=== PATIENT | male | born 1995 | race Caucasian/White ===

== ENCOUNTER 2020-06-08 11:44 | Inpatient (IN) | payer MEDICAID ==
[~2020-06-08] VITALS: Ht 167.6 cm; Wt 70.3 kg
[2020-06-08] MEDS ORDERED: PNEUMOCOCCAL VACCINE POLYVALENT 0.5 ML VIAL [PPSV23] IM ONE (16:00)
[2020-06-08] MEDS ORDERED: INFLUENZA VIRUS VACCINE QVS 2020-21 (6MO+)/PF 60 MCG/0.5 ML SYRINGE IM ONE (16:00)
[2020-06-08 16:30] VITALS: BP 103/58
[2020-06-08] MEDS: LORazepam 2 MG TABLET PO PRN (16:40)
[2020-06-08] MEDS: ZOLPIDEM TARTRATE 10 MG TABLET PO PRN (21:12)
[2020-06-09 00:08] VITALS: BP 137/79
[2020-06-09] MEDS: LORazepam 2 MG TABLET PO PRN ×4 (00:13→17:13)
[2020-06-09] MEDS: HALOPERIDOL 5 MG TABLET PO PRN ×2 (04:14→09:08)
[2020-06-09] MEDS ORDERED: DOCUSATE SODIUM 100 MG CAPSULE PO PRN (08:00)
[2020-06-09] MEDS ORDERED: LOPERAMIDE HCL 2 MG CAPSULE PO PRN (08:00)
[2020-06-09] MEDS ORDERED: CloNIDine HCL 0.1 MG TABLET PO PRN (08:00)
[2020-06-09] MEDS ORDERED: NICOTINE 14 MG/24 HOUR PATCH TD PRN (08:00)
[2020-06-09] MEDS ORDERED: GuaiFENesin/D-METHORPHAN [SUGAR-FREE] 200-20MG/10 ML SYRUP UDCUP PO PRN (08:00)
[2020-06-09] MEDS ORDERED: ALBUTEROL SULFATE HFA 90 MCG/PUFF 8 GM INHALER IH PRN (08:00)
[2020-06-09] MEDS ORDERED: ONDANSETRON HCL 4 MG TABLET PO PRN (08:00)
[2020-06-09] MEDS ORDERED: IBUPROFEN 400 MG TABLET PO PRN (08:00)
[2020-06-09] MEDS ORDERED: MAGNESIUM HYDROXIDE SUSPENSION 30 ML UDCUP PO PRN (08:00)
[2020-06-09] MEDS ORDERED: MAG HYDROX/AL HYDROX/SIMETH ES 30 ML SUSPENSION UDCUP PO PRN (08:00)
[2020-06-09] MEDS ORDERED: PETROLATUM,WHITE 28 GM JELLY TP PRN (08:00)
[2020-06-09] MEDS ORDERED: ACETAMINOPHEN 325 MG TABLET PO PRN (08:00)
[2020-06-09 08:08] VITALS: BP 137/88
[2020-06-09] MEDS: NICOTINE 7 MG/24 HOUR PATCH TD SCH (09:07)
[2020-06-09 16:00] VITALS: BP 120/64
[2020-06-09] MEDS: OLANZapine 5 MG TABLET PO SCH (17:13)
[2020-06-09] MEDS: ZOLPIDEM TARTRATE 10 MG TABLET PO PRN (22:20)
[2020-06-10 05:12] VITALS: BP 124/67
[2020-06-10 08:08] VITALS: BP 119/75
[2020-06-10] MEDS: OLANZapine 5 MG TABLET PO SCH ×2 (08:09→16:56)
[2020-06-10] MEDS: LORazepam 2 MG TABLET PO PRN ×3 (08:09→20:51)
[2020-06-10] MEDS: NICOTINE 7 MG/24 HOUR PATCH TD SCH (08:09)
[2020-06-10] MEDS: HALOPERIDOL 5 MG TABLET PO PRN (08:09)
[2020-06-10 16:14] VITALS: BP 119/78
[2020-06-10] MEDS: ZOLPIDEM TARTRATE 10 MG TABLET PO PRN (20:52)
[2020-06-11 08:09] VITALS: BP 124/69
[2020-06-11] MEDS: OLANZapine 5 MG TABLET PO SCH ×2 (09:20→16:47)
[2020-06-11] MEDS: NICOTINE 7 MG/24 HOUR PATCH TD SCH (09:25)
[2020-06-11 16:09] VITALS: BP 116/70
[2020-06-11] MEDS: LORazepam 2 MG TABLET PO PRN ×2 (16:47→21:24)
[2020-06-11 21:11] VITALS: BP 115/71
[2020-06-11] MEDS: ZOLPIDEM TARTRATE 10 MG TABLET PO PRN (21:24)
[2020-06-12 06:06] VITALS: BP 119/70
[2020-06-12] MEDS: LORazepam 2 MG TABLET PO PRN (06:13)
[2020-06-12 09:00] VITALS: BP 128/87
[2020-06-12] MEDS: OLANZapine 5 MG TABLET PO SCH (09:09)
[2020-06-12] MEDS: NICOTINE 7 MG/24 HOUR PATCH TD SCH (09:16)
[2020-06-12 09:25] LABS: APPEARANCE,URINE TURBID (CLEAR); GLUCOSE, URINE (UA) NEGATIVE (NEGATIVE); KETONES,URINE NEGATIVE (NEGATIVE); LEUKOCYTE ESTERASE ,URINE NEGATIVE (NEGATIVE); NITRATE,URINE NEGATIVE (NEGATIVE); OCCULT BLOOD,URINE NEGATIVE (NEGATIVE); PROTEIN,URINE POS 1+ (NEGATIVE)
[2020-06-12 09:32] LABS: AMPHET/METH SCREEN,URINE POSITIVE (NEGATIVE); BARBITURATE SCREEN, URINE NEGATIVE (NEGATIVE); BENZODIAZEPINES SCREEN,URINE NEGATIVE (NEGATIVE); CANNABINOID SCREEN,URINE POSITIVE (NEGATIVE); COCAINE SCREEN,URINE NEGATIVE (NEGATIVE); METHADONE SCREEN, URINE NEGATIVE (NEGATIVE); OPIATE SCREEN,URINE POSITIVE (NEGATIVE)
[2020-06-12 09:34] LABS: PHENCYCLIDINE SCREEN,URINE NEGATIVE (NEGATIVE)
[2020-06-12 09:37] LABS: BILIRUBIN,URINE PRELIM. POSITIVE (NEGATIVE)
[2020-06-12] MEDS ORDERED: OLAN5TAB2 PO (10:14)
== END 2020-06-12 11:15 | disposition home or self-care (01) | DRG 750 ==
LOC: B3A 15:02
PROVIDERS: ADMIT Psychiatry & Neurology Psychiatry; ATTEND Psychiatry & Neurology Psychiatry
DX: F25.9 Schizoaffective disorder, unspecified (principal); G40.909 Epilepsy, unspecified, not intractable, without status epilepticus; R45.851 Suicidal ideations; Z59.0 Homelessness
CPT/HCPCS: 80307